=== PATIENT | female | born 1985 | race Two or more races ===

== ENCOUNTER 2019-12-25 08:34 | Inpatient (IN) | payer BC ==
[~2019-12-25] VITALS: Ht 152.4 cm; Wt 78.5 kg
--- NOTE | 2019-12-25 08:40 | NUR ---
ED Nurse Note: IV line established. Blood specimen collected and sent to lab.
[2019-12-25 08:43] VITALS: BP 95/64
--- NOTE | 2019-12-25 08:43 | NUR ---
ED Nurse Note: Patient walked in to ED c/o lower abdominal pain described it as sharp pain since this AM. Denies nausea, vomiting and diarrhea. LMP 11/13/19. Afebrile. Pt is anxious at this moment. Has hx of anxiety. AAOX4, verbally responsive. No SOB. Pt placed on pressure testing technician.
[2019-12-25] MEDS ORDERED: Metoclopramide 10mg/2ml Inj IVP ONE (08:45)
--- NOTE | 2019-12-25 08:46 | Emergency Room Report ---
History of Present Illness General Chief Complaint: Abdominal Pain Source: Patient Present Illness HPI Patient is a 34-year-old female states that she had a miscarriage in August of this year who presents to the ER complaining of lower abdominal pain for 1 day. Patient complains of lower crampy abdominal pain. Patient states it was associated with some numbness and tingling in both of her hands. Patient states that she feels panicked. Patient is visibly anxious. She denies any chest pain or shortness of breath. She denies any fever or chills. She denies any vomiting, diarrhea or constipation. She denies any dysuria or hematuria. Patient states that since her miscarriage she has not had a normal menstrual cycle and is currently spotting. Allergies: Coded Allergies: No Known Allergies (Unverified , 12/25/19) COVID-19 Screening Contact w/high risk pt: No Recent Travel to affected area: No Experienced COVID-19 symptoms?: No COVID-19 Testing performed NANOELECTRONICS ENGINEER: No Patient History Reviewed Nursing Documentation: PMH: Agreed; PSxH: Agreed Nursing Documentation-PMH Past Medical History: No History, Except For Review of Systems All Other Systems: negative except mentioned in HPI Physical Exam Vital Signs Date Time Temp Pulse Resp B/P (MAP) Pulse Ox O2 Delivery O2 Flow Rate FiO2 12/25/19 08:36 97.3 120 20 95/64 (74) 100 Room Air Sp02 EP Interpretation: reviewed, normal General Appearance: alert, GCS 15, non-toxic, mild distress - anxious Head: normocephalic, atraumatic Eyes: bilateral eye normal inspection, bilateral eye PERRL ENT: hearing grossly normal, normal pharynx, no angioedema, normal voice, dry mucus membranes Neck: full range of motion, supple/symm/no masses Respiratory: chest non-tender, lungs clear, normal breath sounds, speaking full sentences Cardiovascular #1: tachycardia Gastrointestinal: no guarding, no rebound, other - Suprapubic tenderness to palpation Rectal: deferred Genitourinary: no CVA tenderness Musculoskeletal: normal range of motion, no calf tenderness Neurologic: alert, motor strength/tone normal, oriented x3, sensory intact, responsive, speech normal Psychiatric: no suicidal/homicidal ideation Skin: no rash Lymphatic: no adenopathy Procedures Critical Care Time Critical Care Time Total critical care time: Approximately 35 minutes. Due to a high probability of clinically significant, life threatening deterioration, the patient required my highest level of preparedness to intervene emergently and I personally spent this critical care time directly and personally managing the patient. This critical care time included obtaining a history; examining the patient; pulse oximetry; ordering and review of studies; arranging urgent treatment with development of a management plan; evaluation of patient's response to treatment ; frequent reassessment; and, discussions with other providers.This critical care time was performed to assess and manage the high probability of imminent, life-threatening deterioration that could result in multi-organ failure. It was exclusive of separately billable procedures and treating other patients and teaching time. Please see MDM section and the rest of the note for further information on patient assessment and treatment. Medical Decision Making ER Course At 9:30 AM patient requesting something to calm down her nerves. She appears anxious. I have ordered for 1 mg of IV Ativan. Patient's beta quant less than 4000. At 10:15 AM sterile instrument technician reported that the patient had some free fluid in the R perihepatic region, trace LLQ and pelvic free fluid. as well as what appears to be a pelvic hematoma. Questionable ruptured ectopic as no intrauterine is seen. Will page on-call CRACKER OFF Dr. Saavedra. Repaging Dr. Saavedra at 1040am. Dr. Saavedra called back at 11:15 AM. He states that he wants to try giving the patient methotrexate and he will evaluate the patient. He states it is 50 mg/m . He is directly calling the pharmacy to order the medication. Laboratory Tests Test 12/25/19 08:47 12/25/19 10:08 12/25/19 11:00 White Blood Count 13.5 K/UL (4.8-10.8) H Red Blood Count 3.84 M/UL (4.20-5.40) L Hemoglobin 11.7 G/DL (12.0-16.0) L Hematocrit 36.1 % (37.0-47.0) L Mean Corpuscular Volume 94 FL (80-99) Mean Corpuscular Hemoglobin 30.5 PG (27.0-31.0) Mean Corpuscular Hemoglobin Concent 32.4 G/DL (32.0-36.0) Red Cell Distribution Width 12.9 % (11.6-14.8) Platelet Count 474 K/UL (150-450) H Mean Platelet Volume 7.8 FL (6.5-10.1) Neutrophils (%) (Auto) 83.1 % (45.0-75.0) H Lymphocytes (%) (Auto) 13.0 % (20.0-45.0) L Monocytes (%) (Auto) 3.1 % (1.0-10.0) Eosinophils (%) (Auto) 0.2 % (0.0-3.0) Basophils (%) (Auto) 0.6 % (0.0-2.0) Prothrombin Time 11.4 SEC (9.30-11.50) Prothrombin Time INR 1.0 (0.9-1.1) Activated Partial Thromboplast Time 23 SEC (23-33) D-Dimer 0.22 mg/L FEU (0.00-0.49) Sodium Level 140 MMOL/L (136-145) Potassium Level 3.2 MMOL/L (3.5-5.1) L Chloride Level 102 MMOL/L (98-107) Carbon Dioxide Level 20 MMOL/L (21-32) L Anion Gap 18 mmol/L (5-15) H Blood Urea Nitrogen 11 mg/dL (7-18) Creatinine 1.3 MG/DL (0.55-1.30) Estimated Glomerular Filtration Rate 46.6 mL/min (>60) Glucose Level 178 MG/DL (74-106) H Calcium Level 8.8 MG/DL (8.5-10.1) Magnesium Level 1.9 MG/DL (1.8-2.4) Total Bilirubin 0.5 MG/DL (0.2-1.0) Aspartate Amino Transferase (AST) 18 U/L (15-37) Alanine Aminotransferase (ALT) 33 U/L (12-78) Alkaline Phosphatase 63 U/L (46-116) Troponin I 0.001 ng/mL (0.000-0.056) Total Protein 7.8 G/DL (6.4-8.2) Albumin 4.2 G/DL (3.4-5.0) Globulin 3.6 g/dL Albumin/Globulin Ratio 1.2 (1.0-2.7) Lipase 106 U/L (73-393) Thyroid Stimulating Hormone (TSH) 4.935 uiU/mL (0.358-3.740) Free Thyroxine 1.15 NG/DL (0.76-1.46) Human Chorionic Gonadotropin, Quant 3265 mIU/mL (1-6) H Venous Blood pH 7.344 Venous Blood Partial Pressure CO2 46.6 Venous Blood Partial Pressure O2 32.6 Venous Blood HCO3 24.8 Venous Blood Total Carbon Dioxide Pending Venous Blood Base Excess -1.1 Venous Blood Carboxyhemoglobin 0.3 % (0.5-1.5) L Methemoglobin 0.4 Lactic Acid Level 1.50 mmol/L (0.4-2.0) EKG Diagnostic Results EKG Time: 08:52 EP Interpretation: Kecia Marie MD Rate: tachycardiac - 118 bpm Rhythm: other - sinus tachycardia ST Segments: no acute changes ASA given to the pt in ED: No Rhythm Strip Diag. Results Rhythm Strip Time: 08:50 EP Interpretation: yes - Bridget Marie MD Rate: 110 Rhythm: no PVC's, no ectopy, other - sinus tachycardia Last Vital Signs Date Time Temp Pulse Resp B/P (MAP) Pulse Ox O2 Delivery O2 Flow Rate FiO2 12/25/19 08:36 97.3 120 20 95/64 (74) 100 Room Air Disposition: ADMITTED INPATIENT Condition: Critical Physician Consult: Admit to Dr. Tate. Discussed at 1217. Scripts No Active Prescriptions or Reported Meds Kecia Marie M.D. Dec 25, 2019 08:46
--- NOTE | 2019-12-25 08:46 | NUR ---
ED Nurse Note: Pt refused Reglan 10mg IVP. ERMD notified. Med returned from [facility].
[2019-12-25 09:06] LABS: BASOPHILS % (AUTO) 0.6 % (0.0-2.0); EOSINOPHILS % (AUTO) 0.2 % (0.0-3.0); HEMATOCRIT 36.1 % (37.0-47.0); HEMOGLOBIN 11.7 G/DL (12.0-16.0); MEAN CORPUSCULAR VOLUME 94 FL (80-99); MONOCYTES % (AUTO) 3.1 % (1.0-10.0); NEUTROPHILS % (AUTO) 83.1 % (45.0-75.0); PLATELET COUNT 474 K/UL (150-450); RED BLOOD COUNT 3.84 M/UL (4.20-5.40); RED CELL DISTRIBUTION WIDTH 12.9 % (11.6-14.8); WHITE BLOOD COUNT 13.5 K/UL (4.8-10.8)
[2019-12-25 09:17] LABS: ANION GAP 18 mmol/L (5-15); BLOOD UREA NITROGEN 11 mg/dL (7-18); CALCIUM 8.8 MG/DL (8.5-10.1); CARBON DIOXIDE 20 MMOL/L (21-32); CHLORIDE 102 MMOL/L (98-107); CREATININE 1.3 MG/DL (0.55-1.30); POTASSIUM 3.2 MMOL/L (3.5-5.1); SODIUM 140 MMOL/L (136-145)
[2019-12-25 09:29] LABS: ALANINE AMINOTRANSFERASE 33 U/L (12-78); ALBUMIN 4.2 G/DL (3.4-5.0); ALBUMIN/GLOBULIN RATIO 1.2 (1.0-2.7); ALKALINE PHOSPHATASE 63 U/L (46-116); ASPARTATE AMINO TRANSFERASE 18 U/L (15-37); BILIRUBIN,TOTAL 0.5 MG/DL (0.2-1.0)
--- NOTE | 2019-12-25 09:29 | NUR ---
ED Nurse Note: US at bedside.
[2019-12-25] MEDS ORDERED: LORazepam Inj 2mg/ml 1ml IV ONE (09:30)
--- NOTE | 2019-12-25 10:57 | Diagnostic Imaging Report ---
Indication: Pelvic pain, positive test Technique: Transabdominal and transvaginal images of the pelvis. Doppler interrogation of the bilateral ovaries Comparison: none Findings: Eccentric echogenicity material with significant hyperechoic components are seen surrounding the uterus. This is somewhat compressible. Neither ovary can be visualized. Uterine contours are not well visualized . Probable dimensions are 8.6 cm in length by 4.2 cm AP. Endometrium measures 4 mm thick. No intrauterine is demonstrated. Cervix demonstrates a 1 cm nabothian cyst and another 0.5 cm nabothian cyst. Free intraperitoneal fluid is seen in the right upper quadrant. This contains a small amount of debris. Free fluid is also seen in the left lower quadrant. Impression: No intrauterine demonstrated. Mixed echogenicity material in the pelvis surrounding the uterus is suspicious for blood and therefore raises concern for ruptured ectopic . There is also small amount of free intraperitoneal fluid Neither ovary could be visualized Incidental finding of cervical nabothian cysts Critical value findings phoned to Dr. Marie in the emergency room at the time of interpretation
[2019-12-25 11:00] VITALS: BP 100/51
--- NOTE | 2019-12-25 12:42 | NUR ---
ED Nurse Note: Consent obtained for Methotrexate IM.
[2019-12-25] MEDS ORDERED: fentaNYL 100 mcg/2 mL IV ONE (12:45)
[2019-12-25 13:00] VITALS: BP 102/72
[2019-12-25] MEDS ORDERED: Methotrexate Sodium 25mg/ml 10ML vial IM ONE (13:00)
--- NOTE | 2019-12-25 13:00 | NUR ---
ED Nurse Note: Pt unable to provide urine at this time. ERMd notified and acknowledged.
[2019-12-25 14:26] VITALS: BP 108/78
--- NOTE | 2019-12-25 15:12 | NUR ---
ED Nurse Note: Report given to Rylie MOJICA.
--- NOTE | 2019-12-25 15:16 | NUR ---
Carey chong in ED - 12/25/19 at 1518 by MARYANN TRANSFER TO FLOOR: Patient transferred to Telemetry. Report given to Rylie MOJICA. PT AAOX4, verbally responsive. No SOB. Afebrile. I
--- NOTE | 2019-12-25 15:16 | NUR ---
TRANSFER TO FLOOR: Patient transferred to Telemetry. Report given to Rylie MOJICA. PT AAOX4, verbally responsive. No SOB. Afebrile. IV line on right AC 20g patent and intact. No skin issues. All belongings sent with the patient.
--- NOTE | 2019-12-25 15:37 | NUR ---
NURSE NOTE ADMITTED PATIENT TO TELE RM 206-2 FROM [facility] VIA GURNEY. RECEIVED REPORT FROM BLAZE MOJICA. PATIENT IS AAO X4, ABLE TO MAKE NEEDS KNOWN. PATIENT APPEARED ANXIOUS AND REPORT PAIN OF 5/10. SKIN IS INTACT AND COOL TO TOUCH. BREATHING IS EVEN AND UNLABORED. IV ON RAC 20G IS INTACT, PATENT, AND FLUSHED. BELONGING LIST ACKNOWLEDGED AND SIGNED BY PATIENT. SPECIAL POPULATION PARAPROFESSIONAL IN PLACE. DR. RICE FROM [facility] SAW PATIENT AND WILL PUT ADMISSION ORDERS IN. PATIENT IS NPO AT THIS TIME. ORIENTED PATIENT TO ROOM AND SURROUNDING. ALL NEEDS ANTICIPATED AND MET. WILL CONTINUE TO MONITOR PATIENT. PATIENT IS IN A STABLE CONDITION AT THIS TIME.
[2019-12-25] MEDS ORDERED: Milk of Magnesia 30ml Ud ORAL PRN (15:45)
[2019-12-25 16:00] VITALS: BP 109/67
--- NOTE | 2019-12-25 16:16 | History and Physical ---
History of Present Illness General Date patient seen: Dec 25, 2019 Time patient seen: 15:30 Reason for Hospitalization: Abdominal PainRuptured Ectopic pregnacy Present Illness HPI 34-year-old female with a past medical history of fatty liver disease, to the hospital today with severe abdominal pain starting 12/25/2019. She woke up in the morning and did her normal routine and then suddenly she felt sharp suprapubic, nonradiating, 8/10 pain. She states that she has been spotting all week. She had a miscarriage August 2019 and has not had a normal period since then. Her last menstrual period was November 12. She is sexually active with her who she is currently getting a divorce from. They are not actively trying to have a child. She has been under a lot of stress lately because her father passed and she thought that is what the spotting was from. She does not use control but previously had an implant in her left arm which was removed. In the ED patient was found to have imaging findings consistent with a ruptured ectopic . Allergies: Coded Allergies: No Known Allergies (Unverified , 12/25/19) COVID-19 Screening Contact w/high risk pt: No Recent Travel to affected area: No Experienced COVID-19 symptoms?: No Medication History No Active Prescriptions or Reported Meds Medications Narrative Takes no medications Patient History History Provided By: Patient Healthcare decision maker Resuscitation status Advanced Directive on File Family History Family History: FH: HTN (hypertension) 32 MOTHER Review of Systems Constitutional: Reports: no symptoms Eye: Reports: no symptoms ENT: Reports: no symptoms Respiratory: Reports: no symptoms Gastrointestinal: Reports: abdominal pain; Denies: diarrhea, nausea, vomiting, melena Genitourinary: Reports: vag bleed/dc Musculoskeletal: Reports: no symptoms Skin: Reports: no symptoms Psychiatric: Reports: no symptoms Neurological: Reports: no symptoms Endocrine: Reports: no symptoms All Other Systems: negative except mentioned in HPI Physical Exam General Appearance: WD/WN, no apparent distress, alert Lines, tubes and drains: peripheral HEENT: normocephalic, atraumatic Neck: normal alignment, supple, normal inspection Respiratory/Chest: chest wall non-tender, lungs clear, normal breath sounds, no respiratory distress Cardiovascular/Chest: normal rate, regular rhythm, no gallop/murmur, no JVD Abdomen: no mass, guarding, tender Skin Exam: normal pigmentation, warm/dry Neurologic: well service floorperson II-XII grossly normal, no motor/sensory deficits, alert, oriented x 3 Last 24 Hour Vital Signs Date Time Temp Pulse Resp B/P (MAP) Pulse Ox O2 Delivery O2 Flow Rate FiO2 12/25/19 15:16 98.2 99 21 110/74 99 Room Air 12/25/19 15:12 Room Air 12/25/19 14:26 98.2 90 18 108/78 99 Room Air 12/25/19 13:19 97.3 12/25/19 13:00 97.3 83 19 102/72 100 Room Air 12/25/19 11:00 97.3 89 19 100/51 100 Room Air 12/25/19 10:36 97.3 12/25/19 08:43 120 20 Room Air 12/25/19 08:43 97.3 120 20 95/64 100 Room Air 12/25/19 08:36 97.3 120 20 95/64 (74) 100 Room Air Laboratory Tests Test 12/25/19 08:47 12/25/19 10:08 12/25/19 11:00 White Blood Count 13.5 K/UL (4.8-10.8) H Red Blood Count 3.84 M/UL (4.20-5.40) L Hemoglobin 11.7 G/DL (12.0-16.0) L Hematocrit 36.1 % (37.0-47.0) L Mean Corpuscular Volume 94 FL (80-99) Mean Corpuscular Hemoglobin 30.5 PG (27.0-31.0) Mean Corpuscular Hemoglobin Concent 32.4 G/DL (32.0-36.0) Red Cell Distribution Width 12.9 % (11.6-14.8) Platelet Count 474 K/UL (150-450) H Mean Platelet Volume 7.8 FL (6.5-10.1) Neutrophils (%) (Auto) 83.1 % (45.0-75.0) H Lymphocytes (%) (Auto) 13.0 % (20.0-45.0) L Monocytes (%) (Auto) 3.1 % (1.0-10.0) Eosinophils (%) (Auto) 0.2 % (0.0-3.0) Basophils (%) (Auto) 0.6 % (0.0-2.0) Prothrombin Time 11.4 SEC (9.30-11.50) Prothromb Time International Ratio 1.0 (0.9-1.1) Activated Partial Thromboplast Time 23 SEC (23-33) D-Dimer 0.22 mg/L FEU (0.00-0.49) Sodium Level 140 MMOL/L (136-145) Potassium Level 3.2 MMOL/L (3.5-5.1) L Chloride Level 102 MMOL/L (98-107) Carbon Dioxide Level 20 MMOL/L (21-32) L Anion Gap 18 mmol/L (5-15) H Blood Urea Nitrogen 11 mg/dL (7-18) Creatinine 1.3 MG/DL (0.55-1.30) Estimat Glomerular Filtration Rate 46.6 mL/min (>60) Glucose Level 178 MG/DL (74-106) H Calcium Level 8.8 MG/DL (8.5-10.1) Magnesium Level 1.9 MG/DL (1.8-2.4) Total Bilirubin 0.5 MG/DL (0.2-1.0) Aspartate Amino Transf (AST/SGOT) 18 U/L (15-37) Alanine Aminotransferase (ALT/SGPT) 33 U/L (12-78) Alkaline Phosphatase 63 U/L (46-116) Troponin I 0.001 ng/mL (0.000-0.056) Total Protein 7.8 G/DL (6.4-8.2) Albumin 4.2 G/DL (3.4-5.0) Globulin 3.6 g/dL Albumin/Globulin Ratio 1.2 (1.0-2.7) Lipase 106 U/L (73-393) Thyroid Stimulating Hormone (TSH) 4.935 uiU/mL (0.358-3.740) Free Thyroxine 1.15 NG/DL (0.76-1.46) Human Chorionic Gonadotropin, Quant 3265 mIU/mL (1-6) H Venous Blood pH 7.344 Venous Blood Partial Pressure CO2 46.6 Venous Blood Partial Pressure O2 32.6 Venous Blood HCO3 24.8 Venous Blood Total Carbon Dioxide Pending Venous Blood Base Excess -1.1 Venous Blood Carboxyhemoglobin 0.3 % (0.5-1.5) L Methemoglobin 0.4 Lactic Acid Level 1.50 mmol/L (0.4-2.0) Height (Feet): 5 Height (Inches): 0.00 Weight (Pounds): 170 Medications Current Medications Medications (Trade) Dose Ordered Sig/Kain Route PRN Reason Start Time Stop Time Status Last Admin Dose Admin Acetaminophen (Tylenol) 650 mg Q4H PRN ORAL Mild Pain (Pain Scale 1-3) 12/25/19 15:45 01/24/20 15:44 Acetaminophen (Tylenol) 650 mg Q4H PRN ORAL Temp >100.5 12/25/19 15:45 01/24/20 15:44 Acetaminophen/ Hydrocodone Bitart (Duvall 5/325) 1 tab Q4H PRN ORAL Moderate Pain (Pain Scale 4-6) 12/25/19 16:00 01/01/20 15:59 Dextrose (Dextrose 50%) 25 ml Q30M PRN IV Hypoglycemia 12/25/19 15:45 03/24/20 15:44 Dextrose (Dextrose 50%) 50 ml Q30M PRN IV Hypoglycemia 12/25/19 15:45 03/24/20 15:44 Magnesium Hydroxide (Mom) 30 ml HSPRN PRN ORAL Constipation 12/25/19 15:45 01/24/20 15:44 Ondansetron HCl (Zofran) 4 mg Q6H PRN IVP Nausea & Vomiting 12/25/19 15:45 01/24/20 15:44 Potassium Chloride/Sodium Chloride 1,000 ml @ 150 mls/hr Q6H40M IV 12/25/19 17:00 12/25/19 23:39 Assessment/Plan Problem List: (1) Ruptured ectopic ICD Codes: O00.90 - Unspecified ectopic without intrauterine SNOMED: 94287452 (2) Anemia ICD Codes: D64.9 - Anemia, unspecified SNOMED: 279834941 (3) Leukocytosis ICD Codes: D72.829 - Elevated white blood cell count, unspecified SNOMED: 892963526, 117965540 (4) Abnormal vaginal bleeding ICD Codes: N93.9 - Abnormal uterine and vaginal bleeding, unspecified SNOMED: 466021354 (5) Hypokalemia ICD Codes: E87.6 - Hypokalemia SNOMED: 45649771 Status: stable Assessment/Plan: #Ruptured Ectopic Pregancy #Abnormal Vaginal Bleeding #Pelvic Pain #Blood loss Anemia #Leulocytosis - likely reactive -Dicussed with consulting OBGYN Dr. Saavedra - appreciate recs -Methotrexate given and will monitor -Trend H/H transfuse for Hg less than 7 -Iron Studies -CBC in the AM #Hypokalemia #Anion gap -Replace potassium -IV fluids -BMP in the AM DVTppx- ambulation due to bleeding and possible surgery Tom Tate M.D. Dec 25, 2019 16:16
[2019-12-25 16:33] LABS: % IRON SATURATION 21 % (15-50); IRON 69 ug/dL (50-175); TOTAL IRON BINDING CAPACITY 326 ug/dL (250-450)
[2019-12-25] MEDS ORDERED: NS w/KCl 20mEq 1000ml 1,000 ML IV SCH (17:00)
[2019-12-25] MEDS: HYDROcodone/Acetamin 5/325 tab ORAL PRN ×2 (18:15→23:29)
--- NOTE | 2019-12-25 19:30 | NUR ---
NURSE NOTES: RECEIVED REPORT FROM GALINA TRIPP. AAOX4, VERBALLY RESPONSIVE AND ABLE TO MAKE NEEDS KNOWN. NO COMPLAINTS OF PAIN OR DISCOMFORT AT THIS TIME- PATIENT STATES MEDICATION SHE RECEIVED EARLIER TODAY IS WORKING. BREATHING IS EVEN AND UNLABORED, NO S/SX OF DISTRESS NOTED. IV SITE ON RAC PATENT, INTACT, ASYMPTOMATIC WITH NS W/ KCL 20 MEQ RUNNING AT 150 ML/HR. FALL PRECAUTIONS IN PLACE. REMINDED PATIENT TO CALL FOR ASSISTANCE PRIOR TO GETTING OUT OF BED TO USE THE RESTROOM. BELONGINGS WITHIN REACH. BED LOCKED AND IN LOWEST POSITION WITH SIDERAILS UP X 2. CALL LIGHT WITHIN REACH. WILL CONTINUE TO MONITOR FOR ANY CHANGES.
--- NOTE | 2019-12-25 19:36 | NUR ---
HAND-OFF: Report given to Marilee MOJICA. Patient is in stable condition.
[2019-12-25 20:00] VITALS: BP 110/62
--- NOTE | 2019-12-25 21:20 | NUR ---
NURSE NOTES: LEFT MESSAGE FOR DR. HANSEN AT [phone] REGARDING PATIENT'S REQUEST FOR ANTIANXIETY MEDICATION. AWAITING CALL BACK.
--- NOTE | 2019-12-25 21:38 | NUR ---
NURSE NOTES: DR. BUSTILLO, ON-CALL FOR DR. HANSEN, RETURNED CALL WITH ORDER FOR ATIVAN 1MG IV Q4 PRN FOR ANXIETY. ORDER NOTED AND CARRIED OUT.
[2019-12-25] MEDS ORDERED: LORazepam Inj 2mg/ml 1ml IV PRN (21:45)
[2019-12-26] VITALS: BP 121/70
--- NOTE | 2019-12-26 | NUR ---
NURSE NOTES: BEDSIDE COMMODE PLACED IN PATIENT'S ROOM AFTER WITNESSING PATIENT WITH WEAKNESS SECONDARY TO LOWER ABDOMINAL PAIN. EDUCATED PATIENT ON THE USE OF BEDSIDE COMMODE AND TO CALL FOR ASSISTANCE PRIOR TO GETTING UP. PATIENT VERBALIZED UNDERSTANDING.
[2019-12-26 04:00] VITALS: BP 117/65
[2019-12-26] MEDS: HYDROcodone/Acetamin 5/325 tab ORAL PRN ×4 (04:51→23:07)
[2019-12-26 06:31] LABS: HEMATOCRIT 20.5 % (37.0-47.0); MEAN CORPUSCULAR VOLUME 95 FL (80-99); PLATELET COUNT 260 K/UL (150-450); RED BLOOD COUNT 2.17 M/UL (4.20-5.40); RED CELL DISTRIBUTION WIDTH 13.3 % (11.6-14.8); WHITE BLOOD COUNT 9.9 K/UL (4.8-10.8)
[2019-12-26 06:35] LABS: ANION GAP 11 mmol/L (5-15); BLOOD UREA NITROGEN 11 mg/dL (7-18); CALCIUM 7.9 MG/DL (8.5-10.1); CARBON DIOXIDE 24 MMOL/L (21-32); CHLORIDE 109 MMOL/L (98-107); CREATININE 0.8 MG/DL (0.55-1.30); POTASSIUM 3.8 MMOL/L (3.5-5.1); SODIUM 144 MMOL/L (136-145)
[2019-12-26 07:05] LABS: HEMOGLOBIN 6.7 G/DL (12.0-16.0)
--- NOTE | 2019-12-26 07:06 | NUR ---
NURSE NOTES: Received report from Marilee MOJICA in bed resting, denies any pain at this time and states " I'm tired and just wants to sleep in some more." Encouraged patient to get some rest. No s/s of respiratory distress or SOB noted. Noted patient has a bedside commode by bedside for safety. IV is intact and patent. Bed is in lowest level with bedside rails up x2, brakes engaged for safety. Call light is within reach. Will continue with the plan of care.
--- NOTE | 2019-12-26 07:15 | NUR ---
NURSE NOTES: Lab called to report HGB of 6.7. Will notify MD. Patient is in stable condition. Will continue to monitor.
--- NOTE | 2019-12-26 07:29 | NUR ---
HAND-OFF: Report given to GALINA TRIPP. INFORMED HER OF HGB OF 6.7. PLAN OF CARE ENDORSED.
[2019-12-26 08:00] VITALS: BP 102/62
--- NOTE | 2019-12-26 08:49 | NUR ---
CASE MANAGEMENT:REVIEW 34 YR OLD FEMALE WALKED INTO ER CC: ABDOMINAL PAIN W/TINGLING IN BUE SI:QUESTIONABLE RUPTURED ECTOPIC 97.4 120 20 95/64 100% ON RA WBC+13.5 H/H-11.7/36.1 IS: 1L NS BOLUS X2 IV REGLAN IV ATIVAN KCL PO TYLENOL PO IV FENTANYL IM METHOTREXATE TRANSVAGINAL US NPO TYPE & SCREEN URINE : TO TELEMETRY UNIT 12/26/19 SI: ECTOPIC 98.8 86 16 117/65 99% ON RA H/H-6.7/20.5 IS: TRANSFUSE 1 UNIT PRBC'S IV ATIVAN Q4HRS PRN NORCO PO Q4HRS PRN : TELEMETRY STATUS DCP: PATIENT IS FROM HOME Addendum: 12/26/19 at 0906 by MICHAEL TREVINO LVN LVN INTERQUAL CRITERIA MET
--- NOTE | 2019-12-26 08:58 | NUR ---
*-* INSURANCE *-* ALL AVAILABLE CLINICALS AND REVIEW AND INTERQUAL (W/ CRITERIA MET) HAVE BEEN FAXED TO: [facility] TRK# [id number] VIJI:PABLO P: [phone] [id number] F: [phone] RECEIVED A CALL FROM [facility] CM: PABLO STATING HE HAS TO ISSUE A DENIAL STATING THEY AUTHORIZED OBS ONLY AND NOT INPATIENT, REQUESTED TO SEE ER NOTE (COMPLETE AVAILABLE ADMISSION NOTES HAVE BEEN FAXED ALONG WITH REVIEWS AND INTERQUAL.
--- NOTE | 2019-12-26 10:31 | General Progress Note ---
Assessment/Plan Problem List: (1) Ruptured ectopic ICD Codes: O00.90 - Unspecified ectopic without intrauterine SNOMED: 12663088 (2) Anemia ICD Codes: D64.9 - Anemia, unspecified SNOMED: 463460747 Qualifiers: (3) Abnormal vaginal bleeding ICD Codes: N93.9 - Abnormal uterine and vaginal bleeding, unspecified SNOMED: 964601472 Status: stable Assessment/Plan: #Ruptured Ectopic Pregancy #Abnormal Vaginal Bleeding #Pelvic Pain #Blood loss Anemia #Leulocytosis - likely reactive -resolved -Dicussed with consulting OBGYN Dr. Saavedra - appreciate recs -Methotrexate given and will monitor -Transfusion 1 unit pRBC 12/26/19 -Hematology consulted - appreciate recs -Trend H/H transfuse for Hg less than 7 -Iron Studies reviewed -CBC in the AM #Hypokalemia -resolved #Anion gap -rsolved -Replace potassium -IV fluids -BMP in the AM DVTppx- ambulation due to bleeding and possible surgery Subjective Date patient seen: Dec 26, 2019 Time patient seen: 09:00 Constitutional: Reports: no symptoms; Denies: malaise, weakness HEENT: Reports: no symptoms Cardiovascular: Denies: chest pain, edema, irregular heart rate Respiratory: Reports: no symptoms Gastrointestinal/Abdominal: Denies: abdomen distended, abdominal pain, black stools, tarry stools, blood in stool Genitourinary: Reports: discharge, other - blood Neurologic/Psychiatric: Reports: no symptoms Endocrine: Reports: no symptoms Hematologic/Lymphatic: Reports: anemia Allergies: Coded Allergies: No Known Allergies (Unverified , 12/25/19) All Systems: reviewed and negative except above Subjective Patient states her pelvic pain has resolved. She is still spotting. No blood anywhere else. Agreed to transfusion. Objective Last 24 Hour Vital Signs Date Time Temp Pulse Resp B/P (MAP) Pulse Ox O2 Delivery O2 Flow Rate FiO2 12/26/19 09:00 Room Air 12/26/19 08:00 98.6 100 18 102/62 (75) 98 12/26/19 08:00 100 12/26/19 04:00 98.8 86 16 117/65 (82) 99 12/26/19 04:00 86 12/26/19 00:00 84 12/26/19 00:00 98.1 83 20 121/70 (87) 97 12/25/19 21:00 Room Air 12/25/19 20:00 98.6 98 18 110/62 (78) 100 12/25/19 20:00 81 12/25/19 16:00 98.8 88 18 109/67 (81) 100 12/25/19 16:00 88 12/25/19 15:16 98.2 99 21 110/74 99 Room Air 12/25/19 15:12 Room Air 12/25/19 14:26 98.2 90 18 108/78 99 Room Air 12/25/19 13:19 97.3 12/25/19 13:00 97.3 83 19 102/72 100 Room Air 12/25/19 11:00 97.3 89 19 100/51 100 Room Air 12/25/19 10:36 97.3 Intake and Output 12/25/19 12/26/19 19:00 07:00 Intake Total 4140 ml 240 ml Output Total 300 ml Balance 4140 ml -60 ml Intake Oral 140 ml 240 ml IV Total 4000 ml Output Urine Total 300 ml # Voids 1 Laboratory Tests 12/25/19 11:00: Lactic Acid Level 1.50 12/26/19 05:24: White Blood Count 9.9, Red Blood Count 2.17L, Hemoglobin 6.7#*L, Hematocrit 20.5 #L, Mean Corpuscular Volume 95, Mean Corpuscular Hemoglobin 30.7, Mean Corpuscular Hemoglobin Concent 32.5, Red Cell Distribution Width 13.3, Platelet Count 260, Mean Platelet Volume 8.0, Neutrophils (%) (Auto) , Lymphocytes (%) ( Auto) , Monocytes (%) (Auto) , Eosinophils (%) (Auto) , Basophils (%) (Auto) , Neutrophils % (Manual) [Pending], Lymphocytes % (Manual) [Pending], Platelet Estimate [Pending], Platelet Morphology [Pending], Sodium Level 144, Potassium Level 3.8, Chloride Level 109H, Carbon Dioxide Level 24, Anion Gap 11, Blood Urea Nitrogen 11, Creatinine 0.8, Estimat Glomerular Filtration Rate > 60, Glucose Level 97, Calcium Level 7.9L Height (Feet): 5 Height (Inches): 0.00 Weight (Pounds): 173 General Appearance: WD/WN, no apparent distress, alert EENT: PERRL/EOMI Neck: non-tender, normal alignment, supple Cardiovascular: normal peripheral pulses, normal rate, regular rhythm, no gallop/murmur, no JVD Respiratory/Chest: chest wall non-tender, lungs clear, normal breath sounds, no respiratory distress Abdomen: normal bowel sounds, no mass, tender Pelvis: normal external exam, blood, tender adnexa Extremities: non-tender, normal inspection Edema: no edema noted Arm (L), no edema noted Arm (R), no edema noted Leg (L), no edema noted Leg (R), no edema noted Pedal (L), no edema noted Pedal (R), no edema noted 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 Dec 26, 2019 10:31
[2019-12-26 12:00] VITALS: BP 117/72
[2019-12-26 16:13] VITALS: BP 114/64
--- NOTE | 2019-12-26 16:55 | NUR ---
NURSE NOTES: Blood transfusion ordered and carried out. Pre blood vital signs: T 98.2, BP 119/65, HR 94, I5 minutes after start of transfusion v/s: T 98.8, BP 121/76, HR 98 and post transfusion v/s: T 98.8, BP 121/81, HR 95. No s/s of transfusion reaction noted. Patient is instable condition. Will continue to monitor patient and continues with the plan of care
--- NOTE | 2019-12-26 19:15 | NUR ---
NURSE NOTES: RECEIVED REPORT FROM GALINA TRIPP. PATIENT AWAKE IN BED, AOX4, VERBALLY RESPONSIVE AND ABLE TO MAKE NEEDS KNOWN. COMPLAINS OF LOWER ABDOMINAL PAIN, BUT HAS ALREADY RECEIVED PRESCRIBED PAIN MEDICATION- PATIENT VERBALIZED UNDERSTANDING THAT WE WILL WAIT 30 MINUTES TO DETERMINE EFFECTIVENESS. BREATHING IS EVEN AND UNLABORED ON ROOM AIR, NO S/SX OF DISTRESS NOTED AT THIS TIME. IV SITE ON RAC PATENT, INTACT, ASYMPTOMATIC, SALINE-LOCKED. PATIENT NOTED TO HAVE BRIGHT RED VAGINAL SPOTTING. BEDSIDE COMMODE WITHIN REACH FOR USE- PATIENT INSTRUCTED TO CALL FOR ASSISTANCE BEFORE GETTING UP. FALL PRECAUTIONS IN PLACE. BED LOCKED AND IN LOWEST POSITION WITH SIDERAILS UP X 2. CALL LIGHT WITHIN REACH. WILL CONTINUE TO MONITOR FOR ANY CHANGES.
--- NOTE | 2019-12-26 19:48 | NUR ---
HAND-OFF: Report given to Marilee. Patient is in stable condition.
[2019-12-26 20:00] VITALS: BP 107/60
--- NOTE | 2019-12-26 20:03 | NUR ---
NURSE NOTES: CALLED DOWN TO PHARMACY REGARDING VENOFER ADMINISTRATION. PER PHARMACY, CLARIFY ORDER WITH MD SINCE PATIENT RECEIVED 1UNIT PRBCS EARLIER TODAY. CALLED DR. AVENDAÑO'S EXCHANGE AT [phone]. AWAITING CALL BACK.
--- NOTE | 2019-12-26 20:33 | NUR ---
NURSE NOTES: CONTACTED DR. AVENDAÑO A SECOND TIME REGARDING ORDER FOR VENOFER. AWAITING CALL BACK.
[2019-12-26] MEDS ORDERED: Iron Sucrose 100 MG in NS 55 ML IV SCH (21:00)
--- NOTE | 2019-12-26 21:13 | NUR ---
NURSE NOTES: PER BELLO GRIER TO ADMINISTER VENOFER ORDERED. NOTED AND CARRIED OUT.
[2019-12-27] VITALS: BP 129/72
--- NOTE | 2019-12-27 | NUR ---
NURSE NOTES: PATIENT ASLEEP IN BED, APPEARS CALM AND COMFORTABLE WITH NO S/SX OF ACUTE DISTRESS. WILL CONTINUE TO MONITOR FOR ANY CHANGES.
[2019-12-27 01:22] LABS: HEMATOCRIT 24.9 % (37.0-47.0); HEMOGLOBIN 8.4 G/DL (12.0-16.0); MEAN CORPUSCULAR VOLUME 93 FL (80-99); PLATELET COUNT 227 K/UL (150-450); RED BLOOD COUNT 2.67 M/UL (4.20-5.40); RED CELL DISTRIBUTION WIDTH 12.6 % (11.6-14.8); WHITE BLOOD COUNT 9.8 K/UL (4.8-10.8)
[2019-12-27 04:00] VITALS: BP 125/89
[2019-12-27] MEDS: HYDROcodone/Acetamin 5/325 tab ORAL PRN ×3 (06:58→18:17)
--- NOTE | 2019-12-27 07:50 | NUR ---
HAND-OFF: Report given to GALINA Rosas. Plan of care endorsed.
[2019-12-27 08:11] LABS: HEMATOCRIT 25.9 % (37.0-47.0); HEMOGLOBIN 8.5 G/DL (12.0-16.0); MEAN CORPUSCULAR VOLUME 94 FL (80-99); PLATELET COUNT 210 K/UL (150-450); RED BLOOD COUNT 2.76 M/UL (4.20-5.40); RED CELL DISTRIBUTION WIDTH 12.8 % (11.6-14.8); WHITE BLOOD COUNT 8.9 K/UL (4.8-10.8)
--- NOTE | 2019-12-27 08:29 | Consultation ---
History of Present Illness General Chief Complaint: Abdominal Pain Present Illness Allergies: Coded Allergies: No Known Allergies (Unverified , 12/25/19) Medication History No Active Prescriptions or Reported Meds Patient History Healthcare decision maker Resuscitation status Advanced Directive on File Physical Exam Last 24 Hour Vital Signs Date Time Temp Pulse Resp B/P (MAP) Pulse Ox O2 Delivery O2 Flow Rate FiO2 12/27/19 07:28 97.0 12/27/19 04:00 97.0 94 20 125/89 (101) 94 12/27/19 04:00 87 12/27/19 00:00 102 12/27/19 00:00 98.8 97 18 129/72 (91) 97 12/26/19 21:00 Room Air 12/26/19 20:00 117 12/26/19 20:00 97.8 105 18 107/60 (76) 99 12/26/19 16:13 98.1 100 18 114/64 (81) 97 12/26/19 16:00 111 12/26/19 12:00 82 12/26/19 12:00 98.1 82 20 117/72 (87) 100 12/26/19 09:00 Room Air Intake and Output 12/26/19 12/27/19 19:00 07:00 Intake Total 240 ml 500 ml Balance 240 ml 500 ml Intake Oral 240 ml 500 ml # Voids 1 3 # Bowel Movements 1 Laboratory Tests Test 12/27/19 01:10 12/27/19 07:45 White Blood Count 9.8 K/UL (4.8-10.8) Pending Red Blood Count 2.67 M/UL (4.20-5.40) L Pending Hemoglobin 8.4 G/DL (12.0-16.0) L Pending Hematocrit 24.9 % (37.0-47.0) L Pending Mean Corpuscular Volume 93 FL (80-99) Pending Mean Corpuscular Hemoglobin 31.3 PG (27.0-31.0) H Pending Mean Corpuscular Hemoglobin Concent 33.6 G/DL (32.0-36.0) Pending Red Cell Distribution Width 12.6 % (11.6-14.8) Pending Platelet Count 227 K/UL (150-450) Pending Mean Platelet Volume 7.6 FL (6.5-10.1) Pending Neutrophils (%) (Auto) % (45.0-75.0) Pending Lymphocytes (%) (Auto) % (20.0-45.0) Pending Monocytes (%) (Auto) % (1.0-10.0) Pending Eosinophils (%) (Auto) % (0.0-3.0) Pending Basophils (%) (Auto) % (0.0-2.0) Pending Height (Feet): 5 Height (Inches): 0.00 Weight (Pounds): 173 Medications Current Medications Medications (Trade) Dose Ordered Sig/Kain Route PRN Reason Start Time Stop Time Status Last Admin Dose Admin Acetaminophen (Tylenol) 650 mg Q4H PRN ORAL Mild Pain (Pain Scale 1-3) 12/25/19 15:45 01/24/20 15:44 Acetaminophen (Tylenol) 650 mg Q4H PRN ORAL Temp >100.5 12/25/19 15:45 01/24/20 15:44 Acetaminophen/ Hydrocodone Bitart ([place] 5/325) 1 tab Q4H PRN ORAL Moderate Pain (Pain Scale 4-6) 12/25/19 16:00 01/01/20 15:59 12/27/19 06:58 Dextrose (Dextrose 50%) 25 ml Q30M PRN IV Hypoglycemia 12/25/19 15:45 03/24/20 15:44 Dextrose (Dextrose 50%) 50 ml Q30M PRN IV Hypoglycemia 12/25/19 15:45 03/24/20 15:44 Iron Sucrose 100 mg/Sodium Chloride 60 ml @ 240 mls/hr BEDTIME IV 12/26/19 21:00 12/30/19 21:14 12/26/19 21:19 Lorazepam (Ativan 2mg/ml 1ml) 1 mg Q4H PRN IV For Anxiety 12/25/19 21:45 01/01/20 21:44 12/25/19 21:49 Magnesium Hydroxide (Mom) 30 ml HSPRN PRN ORAL Constipation 12/25/19 15:45 01/24/20 15:44 Ondansetron HCl (Zofran) 4 mg Q6H PRN IVP Nausea & Vomiting 12/25/19 15:45 01/24/20 15:44 Assessment/Plan Assessment/Plan: Hematology Consultation Req MD: Lea and [place] RFA: Abdominal PainRuptured Ectopic pregnacy RFC: Anemia, iron deficiency DOS: 12/27/2019 Present Illness HPI 34-year-old female with a past medical history of fatty liver disease, to the hospital today with severe abdominal pain starting 12/25/2019. She woke up in the morning and did her normal routine and then suddenly she felt sharp suprapubic, nonradiating, 8/10 pain. She states that she has been spotting all week. She had a miscarriage August 2019 and has not had a normal period since then. Her last menstrual period was November 12. She is sexually active with her who she is currently getting a divorce from. They are not actively trying to have a child. She has been under a lot of stress lately because her father passed and she thought that is what the spotting was from. She does not use control but previously had an implant in her left arm which was removed. Noted to have a ruptured ectopic preg Currently is iron deficient, has been started on iv iron and heme consulted. Allergies: Coded Allergies: No Known Allergies (Unverified , 12/25/19) COVID-19 Screening Contact w/high risk pt: No Recent Travel to affected area: No Experienced COVID-19 symptoms?: No Medication History No Active Prescriptions or Reported Meds Medications Narrative Takes no medications Patient History History Provided By: Patient Healthcare decision maker Resuscitation statu Family History Family History: FH: HTN (hypertension) 32 MOTHER Review of Systems Constitutional: Reports: no symptoms Eye: Reports: no symptoms ENT: Reports: no symptoms Respiratory: Reports: no symptoms Gastrointestinal: Reports: abdominal pain; Denies: diarrhea, nausea, vomiting, melena Genitourinary: Reports: vag bleed/dc Musculoskeletal: Reports: no symptoms Skin: Reports: no symptoms Psychiatric: Reports: no symptoms Neurological: Reports: no symptoms Endocrine: Reports: no symptoms All Other Systems: negative except mentioned in HPI Physical Exam General Appearance: WD/WN, nad Lines, tubes and drains: peripheral HEENT: normocephalic, atraumatic Neck: normal alignment, supple, normal inspection Respiratory/Chest: chest wall non-tender, lungs clear Cardiovascular/Chest: normal rate, regular rhythm Abdomen: no mass, guarding, tender Skin Exam: normal pigmentation, warm/dry 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 Guajardo, may have effect on anemia # Ruptured ectopic --> per obgyn # Abnormal vaginal bleeding --> may need hormonal meds v surg intervention as per Dr. Guajardo # Ruptured Ectopic Pregancy --> on mtx # Abnormal Vaginal Bleeding # Pelvic Pain # Dvt ppx scds Appreciate consultation and Serg Do Rn, MD Dec 27, 2019 08:29
[2019-12-27] MEDS ORDERED: Morphine Sulfate 4mg/ml Inj (IV USE ONLY) IVP PRN ×2 (08:45→12:45)
--- NOTE | 2019-12-27 10:50 | NUR ---
CASE MANAGEMENT:REVIEW 12/27/19 SI: RUPTURED ECTOPIC BLOOD LOSS ANEMIA...S/P 1 UNIT PRBC'S 97.0 87 20 125/89 94% ON RA H/H-8.5/25.9 CA-7.9 IS: IV VENOFER QHS NORCO PO Q4HRS PRN : TELEMETRY STATUS DCP: FROM HOME PLAN: DOWNGRADE TO MED/SURG REPEAT LABS AT 1300......PATIENT IS STILL BLEEDING
--- NOTE | 2019-12-27 11:50 | NUR ---
NURSE NOTES: Report received from Alison RN, rounds made. Patient AOx4, calm, had small amount of emesis upon transfer to room 310-1, denies need for nausea medication at this time. No distress on RA, respirations even/unlabored. Belongings reviewed/signed. RAC heplock intact, dried blood on dressing. Up to bathroom with assist, steady. Abdominal pain 8/10, will medicate as ordered. Oriented patient to room and call light for safety. Bed in lowest position, will continue to monitor.
[2019-12-27 12:00] VITALS: BP 127/87
[2019-12-27] MEDS ORDERED: LORazepam Inj 2mg/ml 1ml IV PRN (12:00)
--- NOTE | 2019-12-27 12:00 | NUR ---
HAND-OFF: Patient transferred to [facility] 310-1, report given to Ana MOJICA. Patient with an episode of vomiting upon arrival in room. Belongings accounted for. No new skin issues noted.
[2019-12-27 13:48] LABS: HEMATOCRIT 26.9 % (37.0-47.0); HEMOGLOBIN 8.8 G/DL (12.0-16.0); MEAN CORPUSCULAR VOLUME 94 FL (80-99); PLATELET COUNT 235 K/UL (150-450); RED BLOOD COUNT 2.86 M/UL (4.20-5.40); RED CELL DISTRIBUTION WIDTH 12.8 % (11.6-14.8); WHITE BLOOD COUNT 9.9 K/UL (4.8-10.8)
[2019-12-27] MEDS ORDERED: Tubing IV Secondary IV ONE (14:43)
[2019-12-27] MEDS ORDERED: NS 275ml ONE (14:43)
--- NOTE | 2019-12-27 14:43 | General Progress Note ---
Assessment/Plan Problem List: (1) Ruptured ectopic ICD Codes: O00.90 - Unspecified ectopic without intrauterine SNOMED: 83444543 (2) Anemia ICD Codes: D64.9 - Anemia, unspecified SNOMED: 672165181 Qualifiers: (3) Abnormal vaginal bleeding ICD Codes: N93.9 - Abnormal uterine and vaginal bleeding, unspecified SNOMED: 628179531 Status: stable Assessment/Plan: #Ruptured Ectopic Pregancy #Abnormal Vaginal Bleeding #Pelvic Pain #Blood loss Anemia #Leulocytosis - likely reactive -resolved -Dicussed with consulting OBGYN Dr. Saavedra - appreciate recs -Methotrexate given and will monitor -Transfusion 1 unit pRBC 12/26/19 -Hematology consulted - appreciate recs - Venofer transfusion nightly x 5 -Trend H/H transfuse for Hg less than 7 -Iron Studies reviewed -CBC trend #Hypokalemia -resolved #Anion gap -rsolved -Replace potassium -IV fluids -BMP in the AM DVTppx- ambulation due to bleeding and possible surgery I spent 35 min on this patient with 10 min face to face. Discussed with [employer] about ectopic management. Ligature review. Coordinated with Hematology on anemia. Subjective ROS Limited/Unobtainable: No Constitutional: Reports: no symptoms; Denies: chills, diaphoresis, fever HEENT: Reports: no symptoms Cardiovascular: Reports: no symptoms Respiratory: Reports: no symptoms Gastrointestinal/Abdominal: Reports: abdominal pain Genitourinary: Reports: discharge, pain Neurologic/Psychiatric: Reports: no symptoms Endocrine: Reports: no symptoms Hematologic/Lymphatic: Reports: anemia Allergies: Coded Allergies: No Known Allergies (Unverified , 12/25/19) All Systems: reviewed and negative except above Subjective Patent still having pelvic pain. She is now bleeding as much as her normal period. Objective Last 24 Hour Vital Signs Date Time Temp Pulse Resp B/P (MAP) Pulse Ox O2 Delivery O2 Flow Rate FiO2 12/27/19 12:00 98.9 94 19 127/87 (100) 99 12/27/19 09:00 Room Air 12/27/19 08:00 90 12/27/19 07:28 97.0 12/27/19 04:00 97.0 94 20 125/89 (101) 94 12/27/19 04:00 87 12/27/19 00:00 102 12/27/19 00:00 98.8 97 18 129/72 (91) 97 12/26/19 21:00 Room Air 12/26/19 20:00 117 12/26/19 20:00 97.8 105 18 107/60 (76) 99 12/26/19 16:13 98.1 100 18 114/64 (81) 97 12/26/19 16:00 111 Intake and Output 12/26/19 12/27/19 19:00 07:00 Intake Total 240 ml 500 ml Balance 240 ml 500 ml Intake Oral 240 ml 500 ml # Voids 1 3 # Bowel Movements 1 Laboratory Tests 12/27/19 01:10: White Blood Count 9.8, Red Blood Count 2.67L, Hemoglobin 8.4L, Hematocrit 24.9L , Mean Corpuscular Volume 93, Mean Corpuscular Hemoglobin 31.3H, Mean Corpuscular Hemoglobin Concent 33.6, Red Cell Distribution Width 12.6, Platelet Count 227, Mean Platelet Volume 7.6, Neutrophils (%) (Auto) , Lymphocytes (%) ( Auto) , Monocytes (%) (Auto) , Eosinophils (%) (Auto) , Basophils (%) (Auto) 12/27/19 07:45: White Blood Count 8.9, Red Blood Count 2.76L, Hemoglobin 8.5L, Hematocrit 25.9L , Mean Corpuscular Volume 94, Mean Corpuscular Hemoglobin 31.0, Mean Corpuscular Hemoglobin Concent 33.0, Red Cell Distribution Width 12.8, Platelet Count 210, Mean Platelet Volume 7.3, Neutrophils (%) (Auto) , Lymphocytes (%) ( Auto) , Monocytes (%) (Auto) , Eosinophils (%) (Auto) , Basophils (%) (Auto) , Differential Total Cells Counted 100, Neutrophils % (Manual) 89H, Lymphocytes % (Manual) 9L, Monocytes % (Manual) 2, Eosinophils % (Manual) 0, Basophils % ( Manual) 0, Band Neutrophils 0, Platelet Estimate Adequate, Platelet Morphology Normal, Hypochromasia 2+, Anisocytosis 1+ 12/27/19 13:40: White Blood Count 9.9, Red Blood Count 2.86L, Hemoglobin 8.8L, Hematocrit 26.9L , Mean Corpuscular Volume 94, Mean Corpuscular Hemoglobin 30.7, Mean Corpuscular Hemoglobin Concent 32.6, Red Cell Distribution Width 12.8, Platelet Count 235, Mean Platelet Volume 7.7, Neutrophils (%) (Auto) , Lymphocytes (%) ( Auto) , Monocytes (%) (Auto) , Eosinophils (%) (Auto) , Basophils (%) (Auto) , Neutrophils % (Manual) [Pending], Lymphocytes % (Manual) [Pending], Platelet Estimate [Pending], Platelet Morphology [Pending] Height (Feet): 5 Height (Inches): 0.00 Weight (Pounds): 173 General Appearance: no apparent distress, alert, overweight EENT: PERRL/EOMI Neck: non-tender, normal alignment, supple, normal inspection Cardiovascular: normal peripheral pulses, normal rate, regular rhythm, regularly irregular, no JVD Respiratory/Chest: chest wall non-tender, lungs clear, normal breath sounds, no respiratory distress, no accessory muscle use Abdomen: normal bowel sounds, soft, no organomegaly, no mass, tender Pelvis: normal external exam, tender uterus Extremities: normal inspection Edema: no edema noted Arm (L), no edema noted Arm (R), no edema noted Leg (L), no edema noted Leg (R), no edema noted Pedal (L), no edema noted Pedal (R), no edema noted 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 Dec 27, 2019 14:43
[2019-12-27] MEDS ORDERED: Milk of Magnesia 30ml Ud ORAL PRN (15:45)
[2019-12-27 16:00] VITALS: BP 127/90
--- NOTE | 2019-12-27 19:25 | NUR ---
HAND-OFF: Report given to Drew MOJICA, rounds made. Endorsed patient states LBM 12/23, patient would like MOM PRN. Encouraged patient to increase PO fluid intake and ambulation as well, verbalized understanding.
--- NOTE | 2019-12-27 19:45 | NUR ---
NURSE NOTES: Received report from Rosy MOJICA. Rounding is done. Patient is a/ox4. No any distress noted at this time. Respiration is even and unlabored. Patient got pain medication at 1817 and will keep monitor. IV site is intact and patent. Bed is on alarm, locked, and lowest position. Call light within reach. Will continue to monitor.
[2019-12-27 20:00] VITALS: BP 129/75
--- NOTE | 2019-12-27 20:50 | NUR ---
NURSE NOTES: Patient had virginal bleeding, c/o dizziness, and Nausea. Asked for taking medication for Nausea, but patient refused. Took VS: bp 129/75, HR 90, O2 95% with RA, RR 19. Called to Dr. hernandez group and notified regarding patient's condition. Dr. Tate ordered CBC and BMP. Carried out the order. Will continue to monitor.
[2019-12-27] MEDS ORDERED: Iron Sucrose 100 MG in NS 55 ML IV SCH (21:00)
--- NOTE | 2019-12-27 23:50 | NUR ---
NURSE NOTES: Patient had vomiting 1 time and given medication as ordered. Will continue to monitor.
[2019-12-28] VITALS: BP 125/77
[2019-12-28 04:00] VITALS: BP 114/78
[2019-12-28 05:55] LABS: HEMATOCRIT 28.3 % (37.0-47.0); HEMOGLOBIN 9.3 G/DL (12.0-16.0); MEAN CORPUSCULAR VOLUME 94 FL (80-99); PLATELET COUNT 233 K/UL (150-450); RED BLOOD COUNT 3.02 M/UL (4.20-5.40); RED CELL DISTRIBUTION WIDTH 12.8 % (11.6-14.8); WHITE BLOOD COUNT 9.9 K/UL (4.8-10.8)
[2019-12-28 06:11] LABS: ANION GAP 12 mmol/L (5-15); BLOOD UREA NITROGEN 7 mg/dL (7-18); CALCIUM 8.5 MG/DL (8.5-10.1); CARBON DIOXIDE 28 MMOL/L (21-32); CHLORIDE 101 MMOL/L (98-107); CREATININE 0.8 MG/DL (0.55-1.30); POTASSIUM 3.7 MMOL/L (3.5-5.1); SODIUM 141 MMOL/L (136-145)
--- NOTE | 2019-12-28 07:20 | NUR ---
NURSE NOTES: Report received from Drew MOJICA, rounds made. Patient AOx4, calm, no distress on RA, respirations even/unlabored. RAC heplock intact, dried blood on dressing. Up to bathroom with assist, steady. ALBAN Inman, pain at this time. Peripad changed, small amount of bloody saturation noted. Call light in reach, bed in lowest position, will continue to monitor.
--- NOTE | 2019-12-28 07:28 | NUR ---
HAND-OFF: Report given to Rosy MOJICA. Patient in stable condition.
[2019-12-28 08:00] VITALS: BP 122/79
--- NOTE | 2019-12-28 09:12 | NUR ---
CASE MANAGEMENT:REVIEW 12/28/19 SI: RUPTURED ECTOPIC BLOOD LOSS ANEMIA...S/P 1 UNIT PRBC'S 99.6 95 18 122/79 95% ON RA H/H-9.3/28.3 CA-7.9 IS: IV VENOFER QHS X4 BAGS NORCO PO Q4HRS PRN \: 3E MED SURG UNIT DCP: FROM HOME PLAN: CONTROL PAIN HH STABLE F/U WITH OBGYN
[2019-12-28] MEDS ORDERED: TRAMADOL-ACETA1 EACH ORAL (09:47)
[2019-12-28] MEDS ORDERED: FEOSOL1 TAB ORAL (09:50)
--- NOTE | 2019-12-28 09:54 | Discharge Instructions ---
Discharge Instructions Discharge Instructions Call MD/Return to Hospital if: Heavy bleeding, light headedness Diet: high calorie protein Activity: light activity Follow Up Orders CBC within 2 weeks for anemia For Surgical Patients Contact your physician for: bleeding, pain, tenderness For Congestive Heart Failure Reminder Report to your physician any weight gain of 5 pounds or more in one week. Tom Tate M.D. Dec 28, 2019 09:54
--- NOTE | 2019-12-28 11:15 | NUR ---
*-* INSURANCE *-* ALL AVAILABLE CLINICALS AND REVIEW AND INTERQUAL (W/ CRITERIA MET) HAVE BEEN FAXED TO: [employer] TRK# [id number] P: [phone] [id number] F: [phone]
--- NOTE | 2019-12-28 11:23 | Hematology/Onc Progress Note ---
Assessment/Plan Assessment/Plan Assessment and Recs # Anemia of iron deficiency, wanda tibc and dec ferritin --> iv iron x 5 doses has been started --> no evidence of hemolysis is noted --> monitor for vaginal bleeding --> no further mtx --> hgb 6.7-->9.3 # Ruptured ectopic --> per obgyn # Abnormal vaginal bleeding --> may need hormonal meds v surg intervention as per Dr. Guajardo # Ruptured Ectopic Pregancy --> on mtx # Abnormal Vaginal Bleeding # Pelvic Pain # Dvt ppx scds Appreciate consultation and dw Rn Subjective Constitutional: Denies: no symptoms, chills, fever, malaise, weakness, other HEENT: Denies: no symptoms, eye pain, blurred vision, tearing, double vision, ear pain, ear discharge, nose pain, nose congestion, throat pain, throat swelling, mouth pain, mouth swelling, other Cardiovascular: Denies: no symptoms, chest pain, edema, irregular heart rate, lightheadedness, palpitations, syncope, other Respiratory: Denies: no symptoms, cough, shortness of breath, SOB with excertion, SOB at rest, sputum, wheezing, other Gastrointestinal/Abdominal: Denies: no symptoms, abdomen distended, abdominal pain, black stools, tarry stools, blood in stool, constipated, diarrhea, difficulty swallowing, nausea, poor appetite, poor fluid intake, rectal bleeding , vomiting, other Neurologic/Psychiatric: Denies: no symptoms, anxiety, depressed, emotional problems, headache, numbness, paresthesia, pre-existing deficit, seizure, tingling, tremors, weakness, other Endocrine: Denies: no symptoms, excessive sweating, flushing, intolerance to cold, intolerance to heat, increased hunger, increased thirst, increased urine, unexplained weight gain, unexplained weight loss, other Allergies: Coded Allergies: No Known Allergies (Unverified , 12/25/19) Subjective 12/26 labs reviewed, no bleeding, meds noted, no bleeding, iv iron ongoing Objective Objective Current Medications Medications (Trade) Dose Ordered Sig/Kain Route PRN Reason Start Time Stop Time Status Last Admin Dose Admin Acetaminophen (Tylenol) 650 mg Q4H PRN ORAL Mild Pain (Pain Scale 1-3) 12/27/19 12:00 01/24/20 11:59 Acetaminophen (Tylenol) 650 mg Q4H PRN ORAL Temp >100.5 12/27/19 12:00 01/24/20 11:59 Acetaminophen/ Hydrocodone Bitart (Star 5/325) 1 tab Q4H PRN ORAL Moderate Pain (Pain Scale 4-6) 12/27/19 12:00 01/01/20 11:59 12/27/19 18:17 Dextrose (Dextrose 50%) 25 ml Q30M PRN IV Hypoglycemia 12/27/19 12:15 03/24/20 15:44 Dextrose (Dextrose 50%) 50 ml Q30M PRN IV Hypoglycemia 12/27/19 12:15 03/24/20 15:44 Iron Sucrose 100 mg/Sodium Chloride 60 ml @ 240 mls/hr BEDTIME IV 12/27/19 21:00 12/30/19 21:14 12/27/19 21:28 Lorazepam (Ativan 2mg/ml 1ml) 1 mg Q4H PRN IV For Anxiety 12/27/19 12:00 01/01/20 11:59 Magnesium Hydroxide (Mom) 30 ml HSPRN PRN ORAL Constipation 12/27/19 15:45 01/24/20 15:44 12/27/19 21:28 Morphine Sulfate (Morphine Sulfate) 4 mg Q4H PRN IVP Severe Pain (Pain Scale 7-10) 12/27/19 12:45 01/03/20 08:44 Ondansetron HCl (Zofran) 4 mg Q6H PRN IVP Nausea & Vomiting 12/27/19 12:15 01/24/20 12:14 12/27/19 23:53 Last 24 Hour Vital Signs Date Time Temp Pulse Resp B/P (MAP) Pulse Ox O2 Delivery O2 Flow Rate FiO2 12/28/19 08:00 99.6 95 18 122/79 (93) 95 12/28/19 04:00 99.3 90 18 114/78 (90) 95 12/28/19 00:00 98.6 91 20 125/77 (93) 97 12/27/19 21:00 Room Air 12/27/19 20:00 99.6 90 18 129/75 (93) 95 12/27/19 16:00 97.1 93 19 127/90 (102) 97 12/27/19 12:00 98.9 94 19 127/87 (100) 99 12/27/19 09:00 Room Air 12/27/19 08:00 90 12/27/19 07:28 97.0 12/27/19 04:00 97.0 94 20 125/89 (101) 94 12/27/19 04:00 87 12/27/19 00:00 102 12/27/19 00:00 98.8 97 18 129/72 (91) 97 12/26/19 21:00 Room Air 12/26/19 20:00 117 12/26/19 20:00 97.8 105 18 107/60 (76) 99 12/26/19 16:13 98.1 100 18 114/64 (81) 97 12/26/19 16:00 111 12/26/19 12:00 82 12/26/19 12:00 98.1 82 20 117/72 (87) 100 Intake and Output 12/27/19 12/28/19 19:00 07:00 Intake Total 520 ml 460 ml Balance 520 ml 460 ml Intake Oral 520 ml 400 ml IV Total 60 ml # Voids 2 2 # Bowel Movements 1 Labs Test 12/26/19 05:20 12/26/19 05:24 12/27/19 01:10 12/27/19 07:45 Ferritin 57 NG/ML (8-388) White Blood Count 9.9 K/UL (4.8-10.8) 9.8 K/UL (4.8-10.8) 8.9 K/UL (4.8-10.8) Red Blood Count 2.17 M/UL (4.20-5.40) 2.67 M/UL (4.20-5.40) 2.76 M/UL (4.20-5.40) Hemoglobin 6.7 G/DL (12.0-16.0) 8.4 G/DL (12.0-16.0) 8.5 G/DL (12.0-16.0) Hematocrit 20.5 % (37.0-47.0) 24.9 % (37.0-47.0) 25.9 % (37.0-47.0) Mean Corpuscular Volume 95 FL (80-99) 93 FL (80-99) 94 FL (80-99) Mean Corpuscular Hemoglobin 30.7 PG (27.0-31.0) 31.3 PG (27.0-31.0) 31.0 PG (27.0-31.0) Mean Corpuscular Hemoglobin Concent 32.5 G/DL (32.0-36.0) 33.6 G/DL (32.0-36.0) 33.0 G/DL (32.0-36.0) Red Cell Distribution Width 13.3 % (11.6-14.8) 12.6 % (11.6-14.8) 12.8 % (11.6-14.8) Platelet Count 260 K/UL (150-450) 227 K/UL (150-450) 210 K/UL (150-450) Mean Platelet Volume 8.0 FL (6.5-10.1) 7.6 FL (6.5-10.1) 7.3 FL (6.5-10.1) Neutrophils (%) (Auto) % (45.0-75.0) % (45.0-75.0) % (45.0-75.0) Lymphocytes (%) (Auto) % (20.0-45.0) % (20.0-45.0) % (20.0-45.0) Monocytes (%) (Auto) % (1.0-10.0) % (1.0-10.0) % (1.0-10.0) Eosinophils (%) (Auto) % (0.0-3.0) % (0.0-3.0) % (0.0-3.0) Basophils (%) (Auto) % (0.0-2.0) % (0.0-2.0) % (0.0-2.0) Differential Total Cells Counted 100 100 Neutrophils % (Manual) 73 % (45-75) 89 % (45-75) Lymphocytes % (Manual) 25 % (20-45) 9 % (20-45) Monocytes % (Manual) 2 % (1-10) 2 % (1-10) Eosinophils % (Manual) 0 % (0-3) 0 % (0-3) Basophils % (Manual) 0 % (0-2) 0 % (0-2) Band Neutrophils 0 % (0-8) 0 % (0-8) Platelet Estimate Adequate Adequate Platelet Morphology Normal Normal Hypochromasia 1+ 2+ Sodium Level 144 MMOL/L (136-145) Potassium Level 3.8 MMOL/L (3.5-5.1) Chloride Level 109 MMOL/L (98-107) Carbon Dioxide Level 24 MMOL/L (21-32) Anion Gap 11 mmol/L (5-15) Blood Urea Nitrogen 11 mg/dL (7-18) Creatinine 0.8 MG/DL (0.55-1.30) Estimat Glomerular Filtration Rate > 60 mL/min (>60) Glucose Level 97 MG/DL (74-106) Calcium Level 7.9 MG/DL (8.5-10.1) Anisocytosis 1+ Test 12/27/19 13:40 12/28/19 05:05 White Blood Count 9.9 K/UL (4.8-10.8) 9.9 K/UL (4.8-10.8) Red Blood Count 2.86 M/UL (4.20-5.40) 3.02 M/UL (4.20-5.40) Hemoglobin 8.8 G/DL (12.0-16.0) 9.3 G/DL (12.0-16.0) Hematocrit 26.9 % (37.0-47.0) 28.3 % (37.0-47.0) Mean Corpuscular Volume 94 FL (80-99) 94 FL (80-99) Mean Corpuscular Hemoglobin 30.7 PG (27.0-31.0) 30.9 PG (27.0-31.0) Mean Corpuscular Hemoglobin Concent 32.6 G/DL (32.0-36.0) 32.9 G/DL (32.0-36.0) Red Cell Distribution Width 12.8 % (11.6-14.8) 12.8 % (11.6-14.8) Platelet Count 235 K/UL (150-450) 233 K/UL (150-450) Mean Platelet Volume 7.7 FL (6.5-10.1) 7.7 FL (6.5-10.1) Neutrophils (%) (Auto) % (45.0-75.0) % (45.0-75.0) Lymphocytes (%) (Auto) % (20.0-45.0) % (20.0-45.0) Monocytes (%) (Auto) % (1.0-10.0) % (1.0-10.0) Eosinophils (%) (Auto) % (0.0-3.0) % (0.0-3.0) Basophils (%) (Auto) % (0.0-2.0) % (0.0-2.0) Differential Total Cells Counted 100 Neutrophils % (Manual) 91 % (45-75) Lymphocytes % (Manual) 8 % (20-45) Monocytes % (Manual) 1 % (1-10) Eosinophils % (Manual) 0 % (0-3) Basophils % (Manual) 0 % (0-2) Band Neutrophils 0 % (0-8) Platelet Estimate Adequate Platelet Morphology Normal Hypochromasia 2+ Anisocytosis 1+ Sodium Level 141 MMOL/L (136-145) Potassium Level 3.7 MMOL/L (3.5-5.1) Chloride Level 101 MMOL/L (98-107) Carbon Dioxide Level 28 MMOL/L (21-32) Anion Gap 12 mmol/L (5-15) Blood Urea Nitrogen 7 mg/dL (7-18) Creatinine 0.8 MG/DL (0.55-1.30) Estimat Glomerular Filtration Rate > 60 mL/min (>60) Glucose Level 84 MG/DL (74-106) Calcium Level 8.5 MG/DL (8.5-10.1) Height (Feet): 5 Height (Inches): 0.00 Weight (Pounds): 173 Objective General Appearance: WD/WN, nad Lines, tubes and drains: peripheral HEENT: normocephalic, atraumatic Neck: normal alignment, supple, normal inspection Respiratory/Chest: chest wall non-tender, lungs clear Cardiovascular/Chest: normal rate, regular rhythm Abdomen: no mass, guarding, tender Skin Exam: normal pigmentation, warm/dry Neurologic: pump mechanic II-XII grossly normal, no motor/sensory deficits, alert, oriented x 3 Serg Anguiano MD Dec 28, 2019 11:23
--- NOTE | 2019-12-28 11:43 | Discharge Summary ---
Discharge Summary Hospital Course Date of Admission Dec 25, 2019 at 11:28 Date of Discharge 12/28/2019 Admitting Diagnosis Ruptured Ectopic Reason for Hospitalization: Blood Loss anemia HPI 34-year-old female with a past medical history of fatty liver disease, to the hospital today with severe abdominal pain starting 12/25/2019. She woke up in the morning and did her normal routine and then suddenly she felt sharp suprapubic, nonradiating, 8/10 pain. She states that she has been spotting all week. She had a miscarriage August 2019 and has not had a normal period since then. Her last menstrual period was November 12. She is sexually active with her who she is currently getting a divorce from. They are not actively trying to have a child. She has been under a lot of stress lately because her father passed and she thought that is what the spotting was from. She does not use control but previously had an implant in her left arm which was removed. In the ED patient was found to have imaging findings consistent with a ruptured ectopic . Consultations Hematology oncology Gynecology Hospital Course 34-year-old female with a past medical history of fatty liver disease, to the hospital today with severe abdominal pain starting 12/25/2019. On Pelvic US it showed No intrauterine demonstrated. Mixed echogenicity material in the pelvis surrounding the uterus is suspicious for blood and therefore raises concern for ruptured ectopic . There is also small amount of free intraperitoneal fluid. Her B-Hcg was elevated to 3000 consisent with ruptured ectopic . Pt was given the protocl dose of Methotrexate injection. Gynecology Dr. Saavedra was spoken to on the phone for further management. Pt was admitted and later was found to be anemic at 6.7 and was the transfused 1 unit pBC. Hematology started patient on IV Venofer. Patient began to bleed and cramp like a normal period. Her Hg abhijit to non dangerous level and stabilized. Pt was discharged home with close follow up with Dr. Saavedra. ED precautions given to patient. Counseled her to take prescribed iron supplementation and iron rich foods. I spent 35 min on this patient with 10 min face to face. Discussed with BLOWING ENGINEER about ectopic management. Ligature review and extensive 20 min chart review. Coordinated with Hematology on anemia. Answered multiple RN calls. Discharge Medications New Medications: Ferrous Sulfate (Ferrous Sulfate) 325 Mg Tablet 1 TAB ORAL THREE TIMES A DAY for 7 Days, #30 TAB 0 Refills Tramadol Hcl/Acetaminophen (Tramadol-Acetaminophn 37.5-325) 1 Each Tablet 1 TAB ORAL Q4HR PRN for 7 Days, #14 TAB Discharge Condition Upon Discharge: stable Discharge Vital Signs Last Vital Signs Date Time Temp Pulse Resp B/P (MAP) Pulse Ox O2 Delivery O2 Flow Rate FiO2 12/28/19 09:00 Room Air 12/28/19 08:00 99.6 95 18 122/79 (93) 95 Discharge Disposition Patient was discharged to home with Discharge Diagnoses: (1) Ruptured ectopic (2) Anemia (3) Hypokalemia (4) Abnormal vaginal bleeding (5) Leukocytosis Discharge Instructions Discharge Instructions Call MD/Return to Hospital if: Heavy bleeding, light headedness Activity: light activity For Surgical Patients Contact your physician for: bleeding, pain, tenderness Tom Tate M.D. Dec 28, 2019 11:43
[2019-12-28] MEDS ORDERED: NS 275ml ONE (11:57)
--- NOTE | 2019-12-28 12:00 | NUR ---
NURSE NOTES: Discharge instructions and prescription x1 reviewed with patient, verbalized understanding. RAC heplock discontinued, no active bleeding. No BM yet, refuses MOM, does not want any other laxative at this time, patient states she will eat fiber foods and hydrate, instructed not to strain and if no BM by tomorrow to notify MD. All belongings, discharge instructions and prescription given to patient. Ambulated down to lobby with family member, in stable condition. Discharged home at 1200.
--- NOTE | 2019-12-31 11:14 | NUR ---
*-* INSURANCE *-* DISCHARGE SUMMARY HAS BEEN FAXED TO: [employer] TRK# [id number] NCM:PABLO P: [phone] [id number] F: [phone]
== END 2019-12-28 12:00 | disposition home or self-care (01) | DRG 833 ==
LOC: EMR 09:00 → 2E 11:28 → EDBEDREQ 14:13 → 2E 15:56 → 3E 12-27 12:02
PROC: 30233N1 Transfusion of Nonautologous Red Blood Cells into Peripheral Vein, Percutaneous Approach (ICD-10-PCS; principal; 2019-12-26)
DX: O00.90 Unspecified ectopic pregnancy without intrauterine pregnancy (principal); D50.0 Iron deficiency anemia secondary to blood loss (chronic); E87.6 Hypokalemia; N93.9 Abnormal uterine and vaginal bleeding, unspecified
CPT/HCPCS: 36415; 76801; 76817; 80048; 80053; 82728; 83540; 83550; 83605; 83690; 83735; 84439; 84443; 84484; 84702; 85007; 85025; 85379; 85610; 85730; 86850; 86900; 86901; 86920; 93005; 96361; 96372; 96374; 96375; 99291; J2405; J2765; J7030; J8499